=== PATIENT | female | born 1940 | race African-American/Black ===

== ENCOUNTER → 2022-04-10 | Emergency (ER) | payer OTHER ==
[~2022-04-10] MED LIST: ASPirin 81 mg TAB PO ONE; NITR-87 PO; cefTRIAXone 1GM/50ML D5W 50 ML IV ONE
[2022-04-10 12:24] LABS: Basophils # (auto) 0 10 ^3/uL (0-0.2); Basophils % (auto) 0.7 % (0.0-2.0); Eosinophils # (auto) 0.1 10 ^3/uL (0-0.8); Eosinophils % (auto) 2.2 % (0.0-7.0); Hematocrit 37.3 % (36.0-46.0); Lymphocytes # (auto) 2.4 10 ^3/uL (0.4-5.4); Lymphocytes % (auto) 35.4 % (10.0-50.0); Mean Corpuscular Hemoglobin 29.7 pg (28.0-32.0); Mean Corpuscular Hgb Conc. 32.3 g/dL (32.0-36.0); Mean Corpuscular Volume 91.9 fL (80.0-100.0); Monocytes # (auto) 0.9 10 ^3/uL (0-1.3); Monocytes % (auto) 12.6 % (0.0-12.0); Neutrophils # (auto) 3.3 10 ^3/uL (1.6-8.6); Neutrophils % (auto) 49.1 % (37.0-80.0); Nucleated Red Blood Cells % 0.1 %; Red Blood Cells 4.06 10^6/uL (4.0-5.20); Red Cell Distribution Width 13.3 % (11.8-14.3); White Blood Cell 6.8 10^3/uL (4.4-10.8)
[2022-04-10 12:48] LABS: Potassium 3.6 mmol/L (3.5-5.1)
[2022-04-10 12:55] LABS: Albumin 3.2 g/dL (3.4-5.0); Bilirubin, Total 0.4 mg/dL (0.2-1.0); Calcium 9.8 mg/dL (8.5-10.1); Total Protein 7.5 g/dL (6.4-8.2)
[2022-04-10 13:04] LABS: Urine Bacteria NONE SEEN /hpf (None Seen); Urine Blood Negative /uL (Negative); Urine Specific Gravity 1.013 (1.001-1.035); Urine WBC 10 /hpf (0 - 5)
[2022-04-10 16:15] VITALS: BP 154/63
== END | disposition home or self-care (01) ==
LOC: ER 10:49
DX: R07.89 Other chest pain (principal); N39.0 Urinary tract infection, site not specified
CPT/HCPCS: 36415; 71045; 80053; 81001; 83880; 84484; 85025; 93005; 96365; 99285; J0696

== ENCOUNTER 2023-11-11 13:52 | Emergency (ER) | payer OTHER ==
[~2023-11-11] VITALS: Ht 157.5 cm; Wt 82.3 kg
[~2023-11-11 13:52] MED LIST changes: -ASPirin 81 mg TAB PO ONE; -cefTRIAXone 1GM/50ML D5W 50 ML IV ONE
[2023-11-11 15:48] LABS: Basophils # (auto) 0.1 10 ^3/uL (0-0.2); Basophils % (auto) 0.7 % (0.0-2.0); Eosinophils # (auto) 0.2 10 ^3/uL (0-0.8); Eosinophils % (auto) 2.5 % (0.0-7.0); Hematocrit 35.5 % (36.0-46.0); Hemoglobin 11.5 g/dL (12.2-16.2); Lymphocytes # (auto) 2.8 10 ^3/uL (0.4-5.4); Lymphocytes % (auto) 33.8 % (10.0-50.0); Mean Corpuscular Hemoglobin 29.3 pg (28.0-32.0); Mean Corpuscular Hgb Conc. 32.3 g/dL (32.0-36.0); Mean Corpuscular Volume 90.8 fL (80.0-100.0); Monocytes # (auto) 0.7 10 ^3/uL (0-1.3); Monocytes % (auto) 8.6 % (0.0-12.0); Neutrophils # (auto) 4.5 10 ^3/uL (1.6-8.6); Neutrophils % (auto) 54.4 % (37.0-80.0); Nucleated Red Blood Cells % 0.2 %; Red Blood Cells 3.91 10^6/uL (4.0-5.20); Red Cell Distribution Width 14.7 % (11.8-14.3); White Blood Cell 8.3 10^3/uL (4.4-10.8)
[2023-11-11 16:14] LABS: Alanine Aminotransferase 18 U/L (7-40); Albumin 4.3 g/dL (3.2-4.8); Alkaline Phosphatase 50 U/L (46-116); Anion Gap 8 (5-15); Aspartate Aminotransferase 19 U/L (13-40); BUN/Creatinine Ratio 18.9 (10.0-20.0); Blood Urea Nitrogen 25 mg/dL (9-23); Calcium 9.5 mg/dL (8.7-10.4); Carbon Dioxide 26 mmol/L (20-30); Chloride 109 mmol/L (98-107); Glucose 134 mg/dL (74-106); Potassium 4.3 mmol/L (3.5-5.1); Sodium 143 mmol/L (136-145); Total Protein 6.8 g/dL (5.7-8.2)
[2023-11-11 16:15] LABS: Bilirubin, Total 0.3 mg/dL (0.2-1.0)
[2023-11-11] MEDS: IOHEXOL 350 MG/ML 100ML IJ ONE (17:49)
[2023-11-11] MEDS: SODIUM CHLORIDE 0.9% 1,000 ML IV ONE (17:59)
[2023-11-11] MEDS ORDERED: RIVA15TA PO (19:16)
[2023-11-11 20:00] VITALS: BP 152/63; TEMP 98.2; O2SAT 98
[2023-11-11 20:05] VITALS: PULSE 69; RESP 18
== END 2023-11-11 20:23 | disposition home or self-care (01) ==
LOC: ER 13:52
DX: I82.402 Acute embolism and thrombosis of unspecified deep veins of left lower extremity (principal); M10.9 Gout, unspecified; M79.662 Pain in left lower leg; I10 Essential (primary) hypertension; E78.5 Hyperlipidemia, unspecified; E11.9 Type 2 diabetes mellitus without complications; R07.89 Other chest pain; Z79.899 Other long term (current) drug therapy; Z88.8 Allergy status to other drugs, medicaments and biological substances
CPT/HCPCS: 36415; 71045; 71275; 80053; 83880; 84484; 84550; 85025; 85379; 93971; 96360; 96361; 99285; J7030; Q9967